=== PATIENT | male | born 1990 | race Caucasian/White ===

== ENCOUNTER 2020-09-19 18:34 | Emergency (ER) | payer BC ==
[~2020-09-19] VITALS: Ht 182.9 cm; Wt 88.5 kg
[2020-09-19] MEDS ORDERED: CYCLOBENZAPRINE10 MG PO (21:52)
== END 2020-09-19 22:06 | disposition home or self-care (01) ==
LOC: ED 18:34
DX: S39.012A Strain of muscle, fascia and tendon of lower back, initial encounter (principal); X50.9XXA Other and unspecified overexertion or strenuous movements or postures, initial encounter; Z88.0 Allergy status to penicillin
CPT/HCPCS: 99283